=== PATIENT | female | born 1990 | race Caucasian/White ===

== ENCOUNTER 2022-10-25 04:11 | Day surgery (SDC) | payer OTHER ==
[~2022-10-25] VITALS: Ht 160 cm; Wt 88.5 kg
[2022-10-25] VITALS (216 sets, daily range): BP systolic 96–140; BP diastolic 50–118
--- NOTE | 2022-10-25 07:35 | NUR ---
PT AND MOM HAVE ARRIVED TO [facility] SUITES, BOTH ESCORTED TO ROOM,M POC EXPLAINED, ALL QUESTIONS HAVE BEEN ADRESSED. BELONGINGS HAVE BEEN SENT HOME WITH MOM IN BAG. PT HAS BEEN ORIENTED TO ROOM, CALL LIGHT AND FALL RISK PRECAUTIONS, PT IS A&OX3, FOLLOWS COMMANDS AND HAS BEEN PROVIDED CALL LIGHT. PT ABLE TO MAKE HER NEEDS KNOWN. PT HAS BEEN ATTACHED TO MONITORS, WILL CONTINUE TO MONITOR.
[2022-10-25 08:15] LABS: BASO% 0.3 % (0-3); EOS% 3.4 % (0-8); HEMOGLOBIN 12.5 g/dl (12.0-16.0); IMMATURE GRANULOCYTES 0.1 % (0.0-5.0); LYMPH% 35.5 % (15-41); MEAN CELL VOLUME 87.6 fL CALC (80.0-100.0); MEAN CORPUSCULAR HGB 28.8 pG CALC (26.0-32.0); MEAN CORPUSCULAR HGB CONC 32.9 g/dL CAL (32.0-36.0); MONO% 6.7 % (2-13); NEUT# 4.08 thou/uL (2.00-7.15); RED BLOOD COUNT 4.34 mill/uL (4.20-5.60); RED CELL DISTRI WIDTH 11.7 % (11.5-15.5)
[2022-10-25 08:56] LABS: ALBUMIN 4.6 g/dL (3.2-5.0); ALKALINE PHOSPHATASE 96 u/l (38-126); ANION GAP 11 (6-22 (CALC)); BILIRUBIN, TOTAL 0.2 mg/dL (0.02-1.3); BUN 9 mg/dL (7-17); BUN/CREATININE RATIO 12 (12-20 (CALC)); CARBON DIOXIDE 32 mmol/l (22-30); CHLORIDE 102 mmol/l (95-108); CREATININE 0.8 mg/dL (0.5-1.0); GFR FOR AFR.AMER. > 60 ML/MIN (>=60 (CALC)); GFR OTHER RACES > 60 ML/MIN (>=60 (CALC)); POTASSIUM 4.1 mmol/l (3.5-5.1); SGOT/AST 40 u/l (14-36); SODIUM 141 mmol/l (137-146); TOTAL PROTEIN 8.5 g/dL (6.3-8.2)
--- NOTE | 2022-10-25 09:15 | NUR ---
PT HAS BEEN REASSESSED, PT HAS BEEN SLEEPING, VSS, PT EASILY AROUSED. WILL CONTINUE TO MONITOR.
--- NOTE | 2022-10-25 11:50 | NUR ---
Induction Note Patient to [facility] procedure room. Time out performed at 1150. Patient placed on monitors, Tori hugger, bilateral wrist restraints applied for ET tube protection. Versed 5mg given IV push at 1151 Tourniquet applied to RIGHT arm Lidocaine 100mg given at 1152 IV push followed by Rocoronium 10mg at 1153 IV push and held for 90 seconds. Propofol bolus of 160mg given at 1155 IV push. Succinylcholine 80mg given IV push at 1156. Smooth intubation with 7.5 ETT. Positive CO2. Positive Auscultation for air exchange. Patient placed on ventilator for spontaneous ventilation. Placed on Propofol IV drip at 1157. OG inserted. Positive air on auscultation. Positive gastric content. Stomach washed at this time.
--- NOTE | 2022-10-25 12:05 | NUR ---
OG close note Stomach washed at this time. Naltrexone 50 mg with Clonidine 0.2 mg via OG tube. OG will be clamped for 45 minutes.
--- NOTE | 2022-10-25 12:50 | NUR ---
OG open note OG open at this time. Gastric content draining into drainage bag. OG to drain for 45 minutes. Propofol will be titrated down based on patient.
--- NOTE | 2022-10-25 13:40 | NUR ---
OG close note Stomach washed at this time. Naltrexone 50 mg with Clonidine 0.1 mg via OG tube. OG will be clamped for 45 minutes.
[2022-10-25] MEDS ORDERED: NALTREXONE50 MG PO (14:44)
[2022-10-25] MEDS ORDERED: CLONIDINE0.1 MG PO (14:44)
[2022-10-25] MEDS ORDERED: KLONOPIN2 MG PO (14:45)
--- NOTE | 2022-10-25 15:15 | NUR ---
OG close note Stomach washed at this time. Naltrexone 50 mg with Clonidine 0.2 mg via OG tube. OG will be clamped for 45 minutes.
--- NOTE | 2022-10-25 16:45 | NUR ---
OG close note Stomach washed at this time. Naltrexone 25 mg with Clonidine 0.2 mg via OG tube. OG will be clamped for 45 minutes.
--- NOTE | 2022-10-25 17:30 | NUR ---
OG open note OG open at this time. Gastric content draining into drainage bag. OG to drain for 30 minutes. Propofol will be titrated down based on patient.
--- NOTE | 2022-10-25 18:38 | NUR ---
Extubation note Closing medications given Benadryl 50mg IV push, Decadron 10mg IV push,Magnesium 4 grams IV, Zofran 8mg IV push, Octreotide 100mcg SC. Stomach washed out prior to extubation. Suctioned gastric content. OG removed. Patient extubated. Propofol Discontinued. Wrist restraints removed. Tori hugger Removed. See [facility] Moderate sedate recovery record for further notes and assessment.
--- NOTE | 2022-10-25 19:05 | NUR ---
PT HAS BEEN TRANSPORTED TO [facility] ROOM 288. PT IS AROUSABLE TO PAINFUL STIMULI, PT HAS 3LNC, LR INFUSING @ 100ML/HR. PT HAS BED ALARM ACTIVE. REPORT GIVEN TO GEMMA ROBERTO.
--- NOTE | 2022-10-25 20:16 | NUR ---
PATIENT RECIEVED FROM anr IN BED AT APPROX. 19:10. iv FLUIDS INFUSING ORDERED. O2 AT 2 LITERS VIA NASAL CANNULA. BED IN LOW POSITION. SIDE RAILS UP. BED ALARM ON. CALL LIGHT WITHIN REACH.
--- NOTE | 2022-10-25 20:24 | NUR ---
Pt in bed with eyes closed. Arousable to touch and difficult to arouse. Respiration even and non labored. Incontinent of bladder and incontinence care provided. Pt noted wit reddish rash to cheast are. Lactated Ringers running. Repositioned and HOB elevated. Bed alarmon and bed in low position. Will continue to observe.
--- NOTE | 2022-10-26 00:13 | NUR ---
Patient restless. medicated as ordered with good effect. OOB to bathroom with 2 assists. voided large amount. Took sips of water with meds. yanet well. IV fluids infusing as ordered. all side rails up. bed in low position. bed alarm on. call light in reach.
--- NOTE | 2022-10-26 00:20 | NUR ---
Pt in bed with eyes clsoed and difficultto arouse. Afterrepositioning in bed, pt able to verbalize needs and answer questions. Vitals stable. Respiration even and non labored.no cough or congestion noted. Medications were given asn ordered and pt tolerated well. Incontinence care provided. Will continue to observe.
[2022-10-26 02:24] VITALS: BP 129/58
--- NOTE | 2022-10-26 02:37 | NUR ---
pt vomitting x 4 green bile. medicated with zofran with poor effect. medicated with haldol. will continue to monitor.
--- NOTE | 2022-10-26 05:23 | NUR ---
PT C/O BACK DISCOMFORT. RESTLESS. MEDICATED WITH TORADOL iv ORDERED. WILL CONTINUE TO MONITOR.
--- NOTE | 2022-10-26 05:27 | NUR ---
OOB TO BATHROOM WITH 2 ASSISTS. VOIDED LARGE AMT ON TOILET.
--- NOTE | 2022-10-26 05:33 | NUR ---
PT WAS GIVEN DECADRON FOR SEVERE N/VOMITTING AT 0400. PT HAS NOT VOMITTED AFTER MED GIVEN.
[2022-10-26 05:52] LABS: BASO% 0.1 % (0-3); HEMATOCRIT 36.1 % (37.0-47.0); HEMOGLOBIN 11.9 g/dl (12.0-16.0); IMMATURE GRANULOCYTES 0.2 % (0.0-5.0); LYMPH% 11.1 % (15-41); MEAN CELL VOLUME 86.8 fL CALC (80.0-100.0); MEAN CORPUSCULAR HGB 28.6 pG CALC (26.0-32.0); MONO% 0.9 % (2-13); NEUT# 8.88 thou/uL (2.00-7.15); NEUT% 87.7 % (42-76); RED BLOOD COUNT 4.16 mill/uL (4.20-5.60); RED CELL DISTRI WIDTH 11.7 % (11.5-15.5)
[2022-10-26 05:58] LABS: ALBUMIN 4.1 g/dL (3.2-5.0); ALKALINE PHOSPHATASE 102 u/l (38-126); BUN 12 mg/dL (7-17); BUN/CREATININE RATIO 16 (12-20 (CALC)); CHLORIDE 108 mmol/l (95-108); CREATININE 0.8 mg/dL (0.5-1.0); GFR FOR AFR.AMER. > 60 ML/MIN (>=60 (CALC)); GFR OTHER RACES > 60 ML/MIN (>=60 (CALC)); MAGNESIUM 2.1 mg/dL (1.6-2.3); SGOT/AST 38 u/l (14-36); SODIUM 142 mmol/l (137-146); TOTAL PROTEIN 7.6 g/dL (6.3-8.2)
[2022-10-26 06:01] LABS: POTASSIUM 3.5 mmol/l (3.5-5.1)
[2022-10-26 06:05] LABS: ANION GAP 15 (6-22 (CALC)); BILIRUBIN, TOTAL 0.4 mg/dL (0.02-1.3); CARBON DIOXIDE 23 mmol/l (22-30)
--- NOTE | 2022-10-26 06:23 | NUR ---
Patient in bed with eyes closed and easily arousable. Ableto ambulatge with one person standby assist. Anxiety and nausea impoved after medicated this am. Lactated Ringersrunning at 125ml/hr and tolerating claude. Will continue to observe.
[2022-10-26 07:08] VITALS: BP 106/55
[2022-10-26 07:18] VITALS: BP 90/54
--- NOTE | 2022-10-26 07:42 | NUR ---
GOT REPORT FROM OUTBOARD [employer]OR MECHANIC NURSE. PATIENT ASSESSED, AOX2 DISORIENTATED TO TIME. PATIENT DOES C/O SERVRE NAUSEA AND VOMITTING BUT DENIES ANY OTHER DESTRESS AND JUST VERY TIRED. FALL PRECAUTIONS IN PLACE. BEDSIDE TABLE AND CALL LIGHT ARE WITH IN REACH. ADVISED TO CALL IF NEEDING ANYTHING.
--- NOTE | 2022-10-26 12:00 | NUR ---
PATIENT IS INTOLERATE TO POTASSIUM IV AND PATIENT IS STILL HAVING N/V SO UNABLE TO HAVE PO POTASSIUM. MD AWARE.
--- NOTE | 2022-10-26 12:49 | NUR ---
SPOKE TO DR MOONEY THAT PATIENT IS VERY VOMITING. DR MOONEY GAVE VERBAL ORDERS. SEE CHART. ORDERS SENT TO PHARMACY.
--- NOTE | 2022-10-26 16:47 | NUR ---
Discharge instructions given. Patient verbalizes understanding of same. Discharged in stable condition via Ambulatory to Home with family. All belongings sent with pt.
== END 2022-10-26 16:57 | disposition left against medical advice (07) | DRG 894 ==
LOC: ANR 04:11 → MS2 04:11 → ANR 11:00
PROVIDERS: ATTEND Anesthesiology Critical Care Medicine
DX: F11.20 Opioid dependence, uncomplicated (principal)
CPT/HCPCS: J0131; J1100; J2060; J2354; J3475; S0164

== ENCOUNTER 2022-10-27 11:04 | Observation (INO) | payer MEDICAID ==
[2022-10-27] VITALS (27 sets, daily range): BP systolic 112–153; BP diastolic 76–106
[~2022-10-27] VITALS: Ht 160 cm; Wt 92.0 kg
[~2022-10-27 11:04] MED LIST: CLONIDINE0.1 MG PO; KLONOPIN2 MG PO; NALTREXONE50 MG PO
[2022-10-27 11:56] LABS: ANION GAP 14 (6-22 (CALC)); BUN 21 mg/dL (7-17); BUN/CREATININE RATIO 28 (12-20 (CALC)); CARBON DIOXIDE 26 mmol/l (22-30); CHLORIDE 106 mmol/l (95-108); CREATININE 0.8 mg/dL (0.5-1.0); GFR FOR AFR.AMER. > 60 ML/MIN (>=60 (CALC)); GFR OTHER RACES > 60 ML/MIN (>=60 (CALC)); POTASSIUM 3.3 mmol/l (3.5-5.1); SODIUM 143 mmol/l (137-146)
[2022-10-28 04:09] VITALS: BP 130/90
[2022-10-28 07:30] VITALS: BP 134/89
[2022-10-28 08:07] LABS: ALBUMIN 3.4 g/dL (3.2-5.0); ALKALINE PHOSPHATASE 83 u/l (38-126); ANION GAP 11 (6-22 (CALC)); BUN 13 mg/dL (7-17); BUN/CREATININE RATIO 19 (12-20 (CALC)); CARBON DIOXIDE 23 mmol/l (22-30); CHLORIDE 111 mmol/l (95-108); CREATININE 0.7 mg/dL (0.5-1.0); GFR FOR AFR.AMER. > 60 ML/MIN (>=60 (CALC)); GFR OTHER RACES > 60 ML/MIN (>=60 (CALC)); MAGNESIUM 1.9 mg/dL (1.6-2.3); POTASSIUM 3.3 mmol/l (3.5-5.1); SGOT/AST 59 u/l (14-36); SODIUM 141 mmol/l (137-146); TOTAL PROTEIN 6.2 g/dL (6.3-8.2)
[2022-10-28 08:11] LABS: BILIRUBIN, TOTAL 0.8 mg/dL (0.02-1.3)
== END 2022-10-28 14:02 | disposition home or self-care (01) ==
LOC: ED 11:04 → MS2 14:16
PROVIDERS: Family Medicine; ADMIT Anesthesiology Critical Care Medicine; ATTEND Anesthesiology Critical Care Medicine
DX: R11.10 Vomiting, unspecified (principal); F11.99 Opioid use, unspecified with unspecified opioid-induced disorder; F17.290 Nicotine dependence, other tobacco product, uncomplicated
CPT/HCPCS: G0378; S0164